=== PATIENT | male | born 1940 | race Caucasian/White ===

== ENCOUNTER 2017-05-27 19:06 | Emergency (ER) | payer MEDICARE ==
[~2017-05-27 19:06] MED LIST: ABILIFY10 MG PO; ARICEPT5 MG PO; CARAFATE1 G/10 ML PO; CEREFOLIN TAB1 TAB; CEREFOLIN TAB1 TAB PO; CITRATE OF MAG300 ML PO; DEPAKENE 2250 MG/5 M; DEPAKENE 2250 MG/5 M PO; DEPAKENE250 MG; DEPAKOTE SPRIN125 MG PO; DEPAKOTE250 MG PO; DEPAKOTE500 MG PO; EFFEXOR37.5 MG PO; FLORINEF 0.1 M0.1 MG PO; FUROSEMIDE20 MG PO; K-TAB10 MEQ PO; KEFLEX500 MG PO; LEXAPRO20 MG PO; LOPRESSOR25 MG PO; MIRALAX17 GM PO; MYRBETRIQ25 MG PO; NAMENDA10 MG PO; NAMENDA5 MG PO; PERPHENAZINE2 MG PO; PLAVIX75 MG PO; PROAIR HFA8.5 GM INH; REMERON15 MG PO; SUDOGEST PE10 MG PO; VESICARE5 MG PO; VITAMIN D5000 UNIT PO; ZOCOR20 MG PO; ZYLOPRIM300 MG PO
== END 2017-05-27 21:00 ==
LOC: D.ER 19:06
DX: R09.89 Other specified symptoms and signs involving the circulatory and respiratory systems (principal); T17.228A Food in pharynx causing other injury, initial encounter; X58.XXXA Exposure to other specified factors, initial encounter; Y93.89 Activity, other specified; Y92.129 Unspecified place in nursing home as the place of occurrence of the external cause; I10 Essential (primary) hypertension; K21.9 Gastro-esophageal reflux disease without esophagitis; G20 Parkinson's disease; F31.89 Other bipolar disorder

== ENCOUNTER 2018-03-03 08:44 | Inpatient (IN) | payer MEDICARE ==
[~2018-03-03] VITALS: Ht 172.7 cm; Wt 68.0 kg
[2018-03-03 09:20] LABS: BASOPHILS 0.1 % (0-2); EOSINOPHILS 0.1 % (0-7); HEMATOCRIT 39.7 % (42.0-54.0); HEMOGLOBIN 13.4 g/dL (13.5-17.5); IMMATURE GRANULOCYTES 0.7 % (0-5); LYMPHOCYTES 6.7 % (15-50); MCH 32.7 pg (26.0-34.0); MCHC 33.8 g/dL (31.0-37.0); MCV 96.8 fL (80.0-100.0); MEAN PLATELET VOLUME 10.3 fL (7.4-10.4); NEUTROPHILS 84.4 % (40-80); RDW 13.4 % (11.5-14.5); WBC 10.7 10x3/uL (4.8-10.8)
[2018-03-03 09:24] LABS: PLATELET COUNT 116 10x3/uL (130-400)
[2018-03-03 09:32] LABS: APPEARANCE HAZY (CLEAR); BILIRUBIN NEGATIVE (NEGATIVE); COLOR YELLOW (YELLOW); GLUCOSE NEGATIVE (NEGATIVE); KETONE NEGATIVE (NEGATIVE); NITRITE NEGATIVE (NEGATIVE); PROTEIN 1+ mg/dL (NEGATIVE); SPECIFIC GRAVITY 1.005 (1.005-1.020); UROBILINOGEN NORMAL (NORMAL)
[2018-03-03 09:33] LABS: ALBUMIN 2.7 g/dL (3.4-5.0); ANION GAP 14.9 mmol/L (8-16); BILIRUBIN - TOTAL 0.7 mg/dL (0.2-1.3); CALCIUM 8.5 mg/dL (8.5-10.1); CARBON DIOXIDE 23.3 mmol/L (21.0-32.0); CREATININE - SERUM 1.6 mg/dL (0.6-1.3); POTASSIUM - SERUM 3.2 mmol/L (3.5-5.1); PROTEIN - SERUM 7.6 g/dL (6.4-8.2)
[2018-03-03 09:37] LABS: MUCUS <1+ /lpf (NONE SEEN); RED CELLS - URINE 0-5 /hpf (0-5); WHITE CELLS - URINE 0-5 /hpf (0-5)
[2018-03-03 09:38] LABS: BACTERIA FEW /hpf (NONE SEEN)
[2018-03-03 10:04] LABS: MAGNESIUM - SERUM 1.6 mg/dL (1.8-2.4); TROPONIN-I 0.021 ng/mL (0.000-0.060)
[2018-03-03 10:29] LABS: INR 1.27 (0.85-1.17); PROTIME 15.5 SECONDS (11.6-15.0)
[2018-03-03 10:30] LABS: APTT 27.1 SECONDS (22.8-39.4)
[2018-03-03 13:24] VITALS: BP 95/54; BMI 22.8
[2018-03-03] MEDS ORDERED: REMERON15 MG PO (15:19)
[2018-03-03] MEDS ORDERED: MULTIPLE VITAMI1 TA1 PO (15:20)
[2018-03-03] MEDS ORDERED: PROTONIX40 MG PO (15:21)
[2018-03-03] MEDS ORDERED: FLOMAX0.4 MG PO (15:23)
[2018-03-03] MEDS ORDERED: VITAMIN B-121000 MCG PO (15:39)
[2018-03-03] MEDS ORDERED: BAYER CHEWABLE81 MG PO (15:41)
[2018-03-03] MEDS ORDERED: ABILIFY10 MG PO (15:41)
[2018-03-03] MEDS ORDERED: ACETAMINOPHEN325 MG PO (15:43)
[2018-03-03] MEDS ORDERED: ZOFRAN4 MG PO (15:44)
[2018-03-03] MEDS ORDERED: HYDROCODON-ACE1 EAC7 PO (15:47)
[2018-03-03 16:34] VITALS: BP 88/49
[2018-03-03 20:08] VITALS: BP 102/55
[2018-03-04 04:36] VITALS: BP 109/50
[2018-03-04 07:25] LABS: BASOPHILS 0.1 % (0-2); EOSINOPHILS 2.5 % (0-7); HEMATOCRIT 32.4 % (42.0-54.0); HEMOGLOBIN 10.9 g/dL (13.5-17.5); IMMATURE GRANULOCYTES 0.2 % (0-5); LYMPHOCYTES 17.1 % (15-50); MCH 32.4 pg (26.0-34.0); MCHC 33.6 g/dL (31.0-37.0); MCV 96.4 fL (80.0-100.0); MEAN PLATELET VOLUME 10.6 fL (7.4-10.4); NEUTROPHILS 76.1 % (40-80); RBC 3.36 10x6/uL (4.20-6.10); WBC 9.2 10x3/uL (4.8-10.8)
[2018-03-04 07:27] LABS: PLATELET COUNT 90 10x3/uL (130-400)
[2018-03-04 07:54] LABS: ALBUMIN 2.1 g/dL (3.4-5.0); ANION GAP 14.2 mmol/L (8-16); BILIRUBIN - TOTAL 0.51 mg/dL (0.2-1.3); CALCIUM 7.5 mg/dL (8.5-10.1); CARBON DIOXIDE 23.3 mmol/L (21.0-32.0); CREATININE - SERUM 1.6 mg/dL (0.6-1.3); MAGNESIUM - SERUM 1.8 mg/dL (1.8-2.4); PHOSPHOROUS 3.5 mg/dL (2.5-4.9); POTASSIUM - SERUM 3.5 mmol/L (3.5-5.1); PROTEIN - SERUM 6.3 g/dL (6.4-8.2)
[2018-03-04 08:04] LABS: PLATELET ESTIMATE NORMAL
[2018-03-04 09:09] VITALS: BP 95/51
[2018-03-04 11:53] VITALS: Ht 172.7 cm; Wt 68.0 kg
[2018-03-04 12:30] VITALS: BP 106/63
[2018-03-04 15:58] VITALS: BP 116/62
[2018-03-04 20:00] VITALS: BP 120/66
[2018-03-05] VITALS: BP 109/58
[2018-03-05 04:00] VITALS: BP 104/60
[2018-03-05 04:58] LABS: BASOPHILS 0.3 % (0-2); EOSINOPHILS 5.8 % (0-7); HEMATOCRIT 32.8 % (42.0-54.0); IMMATURE GRANULOCYTES 0.3 % (0-5); MCH 32.3 pg (26.0-34.0); MCHC 33.5 g/dL (31.0-37.0); MCV 96.2 fL (80.0-100.0); MEAN PLATELET VOLUME 10.7 fL (7.4-10.4); MONOCYTES 6.9 % (2-11); NEUTROPHILS 65.7 % (40-80); PLATELET COUNT 95 10x3/uL (130-400); RBC 3.41 10x6/uL (4.20-6.10); RDW 13.7 % (11.5-14.5)
[2018-03-05 04:59] LABS: WBC 6.4 10x3/uL (4.8-10.8)
[2018-03-05 05:40] LABS: ALBUMIN 2.3 g/dL (3.4-5.0); BILIRUBIN - TOTAL 0.35 mg/dL (0.2-1.3); CALCIUM 8.4 mg/dL (8.5-10.1); CARBON DIOXIDE 24.6 mmol/L (21.0-32.0); CREATININE - SERUM 1.3 mg/dL (0.6-1.3); MAGNESIUM - SERUM 1.9 mg/dL (1.8-2.4); PHOSPHOROUS 2.8 mg/dL (2.5-4.9); POTASSIUM - SERUM 3.6 mmol/L (3.5-5.1); PROTEIN - SERUM 6.8 g/dL (6.4-8.2)
[2018-03-05 08:57] VITALS: BP 126/70
[2018-03-05 12:22] VITALS: BP 148/90
[2018-03-05 16:39] VITALS: BP 128/73
[2018-03-05 20:00] VITALS: BP 140/82
[2018-03-06] VITALS: BP 132/66
[2018-03-06 04:00] VITALS: BP 143/87
[2018-03-06 06:42] LABS: BASOPHILS 0.6 % (0-2); EOSINOPHILS 8.9 % (0-7); HEMATOCRIT 34.5 % (42.0-54.0); HEMOGLOBIN 11.6 g/dL (13.5-17.5); IMMATURE GRANULOCYTES 0.6 % (0-5); LYMPHOCYTES 22.4 % (15-50); MCH 32.4 pg (26.0-34.0); MCHC 33.6 g/dL (31.0-37.0); MCV 96.4 fL (80.0-100.0); MONOCYTES 6.9 % (2-11); NEUTROPHILS 60.6 % (40-80); RBC 3.58 10x6/uL (4.20-6.10); RDW 13.4 % (11.5-14.5); WBC 5.2 10x3/uL (4.8-10.8)
[2018-03-06 06:46] LABS: PLATELET COUNT 120 10x3/uL (130-400)
[2018-03-06 07:32] LABS: ALBUMIN 2.3 g/dL (3.4-5.0); BILIRUBIN - TOTAL 0.6 mg/dL (0.2-1.3); CALCIUM 8.4 mg/dL (8.5-10.1); CARBON DIOXIDE 23.5 mmol/L (21.0-32.0); CREATININE - SERUM 1.1 mg/dL (0.6-1.3); MAGNESIUM - SERUM 1.9 mg/dL (1.8-2.4); POTASSIUM - SERUM 3.5 mmol/L (3.5-5.1); PROTEIN - SERUM 7.2 g/dL (6.4-8.2); VANCOMYCIN - TROUGH 17.6 ug/mL (10.0-20.0)
[2018-03-06 08:27] VITALS: BP 139/70
[2018-03-06 16:08] LABS: APPEARANCE CLEAR (CLEAR); BILIRUBIN NEGATIVE (NEGATIVE); COLOR YELLOW (YELLOW); GLUCOSE NEGATIVE (NEGATIVE); KETONE NEGATIVE (NEGATIVE); NITRITE NEGATIVE (NEGATIVE); PROTEIN NEGATIVE (NEGATIVE); UROBILINOGEN NORMAL (NORMAL)
[2018-03-06 16:48] VITALS: BP 121/64
[2018-03-06 20:00] VITALS: BP 130/58
[2018-03-07 04:00] VITALS: BP 158/86
[2018-03-07 06:04] LABS: BASOPHILS 0.7 % (0-2); EOSINOPHILS 4.8 % (0-7); HEMATOCRIT 35.4 % (42.0-54.0); HEMOGLOBIN 11.6 g/dL (13.5-17.5); IMMATURE GRANULOCYTES 0.3 % (0-5); LYMPHOCYTES 23.5 % (15-50); MCH 31.9 pg (26.0-34.0); MCHC 32.8 g/dL (31.0-37.0); MCV 97.3 fL (80.0-100.0); MEAN PLATELET VOLUME 10.8 fL (7.4-10.4); MONOCYTES 8.6 % (2-11); NEUTROPHILS 62.1 % (40-80); RBC 3.64 10x6/uL (4.20-6.10); RDW 13.6 % (11.5-14.5); WBC 5.8 10x3/uL (4.8-10.8)
[2018-03-07 06:12] LABS: PLATELET COUNT 147 10x3/uL (130-400)
[2018-03-07 06:26] LABS: ALBUMIN 2.3 g/dL (3.4-5.0); ANION GAP 10.4 mmol/L (8-16); BILIRUBIN - TOTAL 0.4 mg/dL (0.2-1.3); CALCIUM 8.5 mg/dL (8.5-10.1); CARBON DIOXIDE 25.8 mmol/L (21.0-32.0); CREATININE - SERUM 1.2 mg/dL (0.6-1.3); PHOSPHOROUS 3.3 mg/dL (2.5-4.9); POTASSIUM - SERUM 3.2 mmol/L (3.5-5.1); PROTEIN - SERUM 6.7 g/dL (6.4-8.2)
[2018-03-07 09:15] VITALS: BP 136/84
[2018-03-07 14:25] VITALS: BP 122/65
[2018-03-07 17:06] VITALS: BP 130/72
[2018-03-07 20:00] VITALS: BP 128/75
[2018-03-08 04:00] VITALS: BP 142/74
[2018-03-08 06:43] LABS: BASOPHILS 0.6 % (0-2); EOSINOPHILS 4.6 % (0-7); HEMATOCRIT 36.5 % (42.0-54.0); HEMOGLOBIN 12.1 g/dL (13.5-17.5); IMMATURE GRANULOCYTES 0.6 % (0-5); LYMPHOCYTES 23.8 % (15-50); MCHC 33.2 g/dL (31.0-37.0); MCV 96.6 fL (80.0-100.0); MEAN PLATELET VOLUME 10.6 fL (7.4-10.4); NEUTROPHILS 60.4 % (40-80); PLATELET COUNT 164 10x3/uL (130-400); RBC 3.78 10x6/uL (4.20-6.10); RDW 13.7 % (11.5-14.5); WBC 6.9 10x3/uL (4.8-10.8)
[2018-03-08 07:19] LABS: ALBUMIN 2.6 g/dL (3.4-5.0); ANION GAP 15.3 mmol/L (8-16); BILIRUBIN - TOTAL 0.3 mg/dL (0.2-1.3); CARBON DIOXIDE 21.4 mmol/L (21.0-32.0); CREATININE - SERUM 1.1 mg/dL (0.6-1.3); PHOSPHOROUS 3.2 mg/dL (2.5-4.9); POTASSIUM - SERUM 3.7 mmol/L (3.5-5.1); PROTEIN - SERUM 7.3 g/dL (6.4-8.2)
[2018-03-08 09:30] VITALS: BP 123/73
[2018-03-08 12:25] VITALS: BP 126/67
[2018-03-08 17:10] VITALS: BP 127/69
[2018-03-08 20:00] VITALS: BP 160/87
[2018-03-09 03:11] LABS: ANGIOTENSIN CONVERTING ENZYME 32 U/L (14-82)
[2018-03-09 04:00] VITALS: BP 139/82
[2018-03-09 08:55] VITALS: BP 121/95
[2018-03-09 12:23] VITALS: BP 145/76
[2018-03-09 16:43] VITALS: BP 114/68
[2018-03-09 21:00] VITALS: BP 135/79
[2018-03-10 01:44] VITALS: BP 104/55
[2018-03-10 05:22] VITALS: BP 149/90
[2018-03-10] MEDS ORDERED: CLEOCIN HCL300 MG PO (09:02)
[2018-03-10] MEDS ORDERED: LEVAQUIN500 MG PO (09:07)
[2018-03-10 09:52] VITALS: BP 136/76
[2018-03-10 13:10] VITALS: BP 127/73
[2018-03-10 19:12] LABS: FUNGAL - ASP FLAVUS Negative (Neg:<1:1); FUNGAL - ASP NIGER Negative (Neg:<1:1); FUNGAL - ASPER FUMIGATUS Negative (Neg:<1:1)
== END 2018-03-10 14:48 | disposition home or self-care (01) | DRG 871 ==
LOC: D.ER 08:44 → D.MS 12:25
PROVIDERS: Emergency Medicine; Family Medicine; Internal Medicine Nephrology; Internal Medicine Pulmonary Disease
PROC: 0T9B70Z Drainage of Bladder with Drainage Device, Via Natural or Artificial Opening (ICD-10-PCS; principal; 2018-03-06)
DX: A41.9 Sepsis, unspecified organism (principal); J69.0 Pneumonitis due to inhalation of food and vomit; E43 Unspecified severe protein-calorie malnutrition; J98.11 Atelectasis; E87.2 Acidosis; I69.354 Hemiplegia and hemiparesis following cerebral infarction affecting left non-dominant side; J90 Pleural effusion, not elsewhere classified; R33.9 Retention of urine, unspecified; R91.8 Other nonspecific abnormal finding of lung field; E87.6 Hypokalemia; K21.9 Gastro-esophageal reflux disease without esophagitis; I69.391 Dysphagia following cerebral infarction; R13.12 Dysphagia, oropharyngeal phase; M10.9 Gout, unspecified; D64.9 Anemia, unspecified; E83.42 Hypomagnesemia; G20 Parkinson's disease; F02.80 Dementia in other diseases classified elsewhere, unspecified severity, without behavioral disturbance, psychotic disturbance, mood disturbance, and anxiety; D69.6 Thrombocytopenia, unspecified; K04.7 Periapical abscess without sinus; N18.9 Chronic kidney disease, unspecified; E55.9 Vitamin D deficiency, unspecified; E53.8 Deficiency of other specified B group vitamins